=== PATIENT | male | born 1975 | race Caucasian/White ===

== ENCOUNTER 2021-10-05 10:27 | Emergency (ER) | payer OTHER, MEDICAID ==
[~2021-10-05] VITALS: Ht 175.3 cm; Wt 70.3 kg
[2021-10-05 10:46] VITALS: BP 152/83
--- NOTE | 2021-10-05 10:56 | NUR ---
[id number] & PD FOR FENTANYL WITHDRAWAL, LAST USE 4 DAYS AGO. THE PATIENT DENIES PAIN. IN ROOM AIR AND DENIES SOB. RESPIRATION REGULAR AND UNLABORED. WILL CONTINUE TO MONITOR THE PATIENT.
[2021-10-05] MEDS ORDERED: ONDA4TAB11 PO (11:35)
--- NOTE | 2021-10-05 11:45 | NUR ---
Patient discharged [facility] unit#[id number] in stable condition. Written and verbal after care instructions given. Patient verbalizes understanding of instruction.
[2021-10-05] MEDS ORDERED: ONDANSETRON 4 MG TAB.RAPDIS SL ONE (12:00)
== END 2021-10-05 11:45 ==
LOC: ER 10:33
DX: Z02.89 Encounter for other administrative examinations (principal); F11.23 Opioid dependence with withdrawal